=== PATIENT | female | born 1970 | race Caucasian/White ===

== ENCOUNTER 2019-12-01 19:15 | Emergency (ER) | payer OTHER ==
[~2019-12-01] VITALS: Ht 162.6 cm; Wt 64.0 kg
[2019-12-01 21:47] VITALS: BP 108/66
== END 2019-12-01 21:48 | disposition home or self-care (01) ==
LOC: ER 19:15
DX: M25.562 Pain in left knee (principal); G89.29 Other chronic pain; F17.210 Nicotine dependence, cigarettes, uncomplicated; Z88.6 Allergy status to analgesic agent; Z88.7 Allergy status to serum and vaccine; Z88.8 Allergy status to other drugs, medicaments and biological substances

== ENCOUNTER 2020-07-14 23:54 | Emergency (ER) | payer OTHER ==
[~2020-07-14] VITALS: Ht 162.6 cm; Wt 62.1 kg
[2020-07-15 00:30] VITALS: BP 111/69
== END 2020-07-15 00:30 | disposition home or self-care (01) ==
LOC: ER 23:54
DX: M62.838 Other muscle spasm (principal); J02.9 Acute pharyngitis, unspecified; R22.31 Localized swelling, mass and lump, right upper limb; Z88.5 Allergy status to narcotic agent; Z88.7 Allergy status to serum and vaccine; Z88.8 Allergy status to other drugs, medicaments and biological substances

== ENCOUNTER 2020-12-23 18:56 | Emergency (ER) | payer OTHER ==
[~2020-12-23] VITALS: Ht 162.6 cm; Wt 61.7 kg
[2020-12-23] MEDS ORDERED: ROBAXIN 750 MG750 MG PO (21:03)
[2020-12-23] MEDS ORDERED: PERCOCET 5-3251 EACH PO (21:03)
[2020-12-23 21:29] VITALS: BP 125/62
[2020-12-23 21:31] LABS: URINE BILIRUBIN NEGATIVE (Negative); URINE BLOOD TRACE (Negative); URINE CLARITY CLEAR; URINE COLOR YELLOW; URINE GLUCOSE-RANDOM* NEGATIVE (Negative); URINE KETONES NEGATIVE (Negative); URINE LEUKOCYTES-REFLEX TRACE (Negative); URINE NITRITE-REFLEX NEGATIVE (Negative); URINE PROTEIN (DIPSTICK) NEGATIVE (Negative); URINE SPECIFIC GRAVITY 1.015 (1.005-1.035); URINE UROBILINOGEN 0.2 E.U./dl (0.2-1.0)
== END 2020-12-23 21:29 | disposition home or self-care (01) ==
LOC: ER 18:56
PROVIDERS: Emergency Medicine
DX: M54.5 Low back pain (principal); F15.10 Other stimulant abuse, uncomplicated; E03.9 Hypothyroidism, unspecified; Z88.5 Allergy status to narcotic agent; Z88.7 Allergy status to serum and vaccine; Z88.8 Allergy status to other drugs, medicaments and biological substances; Y04.2XXA Assault by strike against or bumped into by another person, initial encounter; Y93.89 Activity, other specified; Y92.89 Other specified places as the place of occurrence of the external cause; Y99.8 Other external cause status

== ENCOUNTER 2020-12-25 17:38 | Emergency (ER) | payer OTHER ==
[~2020-12-25] VITALS: Ht 162.6 cm; Wt 61.7 kg
[~2020-12-25 17:38] MED LIST: PERCOCET 5-3251 EACH PO; ROBAXIN 750 MG750 MG PO
[2020-12-25 18:24] LABS: URINE BILIRUBIN NEGATIVE (Negative); URINE BLOOD 1+ (Negative); URINE CLARITY CLEAR; URINE COLOR YELLOW; URINE GLUCOSE-RANDOM* NEGATIVE (Negative); URINE KETONES NEGATIVE (Negative); URINE LEUKOCYTES-REFLEX TRACE (Negative); URINE NITRITE-REFLEX NEGATIVE (Negative); URINE PROTEIN (DIPSTICK) NEGATIVE (Negative); URINE UROBILINOGEN 0.2 E.U./dl (0.2-1.0)
[2020-12-25 18:43] LABS: CASTS None Seen /LPF (None Seen); MUCUS 0-3 Light strn/LPF (None Seen); SQUAMOUS 4-10 Moderate /LPF (0-3); URINE WBC-REFLEX 0-5 Rare /HPF (0-5)
[2020-12-25 18:44] LABS: BACTERIA-REFLEX 1-9 Few /HPF (None Seen); CRYSTALS None Seen /LPF (None Seen); URINE RBC 0-2 Rare /HPF (0-2)
[2020-12-25 19:49] LABS: ABSOLUTE NEUTROPHILS 5.9 thou/uL (1.4-8.2); BASOPHILS 0.5 % (0.0-2.0); EOSINOPHILS 1.1 % (0.0-3.0); HEMATOCRIT 38.8 % (37.0-47.0); LYMPHOCYTES 24.1 % (24.0-44.0); MCH 31.6 pg (26.0-34.0); MCHC 33.6 g/dL (28.0-37.0); MCV 94.1 fL (80.0-100.0); MONOCYTES 7.6 % (1.0-8.0); PLATELET COUNT 320 thou/uL (150-400); POLYS 66.7 % (36.0-66.0); RBC 4.12 mil/uL (4.20-5.00); RDW 12.7 % (10.5-14.5); WBC 8.9 thou/uL (4.0-11.0)
[2020-12-25 20:38] LABS: CALCIUM 8.6 mg/dL (8.5-10.1); CREATININE 0.9 mg/dL (0.6-1.0); POTASSIUM 3.6 mmol/L (3.5-5.1)
[2020-12-25 20:42] LABS: ALBUMIN 3.7 g/dL (3.4-5.0); TOTAL BILIRUBIN 0.2 mg/dL (0.2-1.0); TOTAL PROTEIN 7.4 g/dL (6.4-8.2)
[2020-12-25] MEDS ORDERED: DOXYCYCLINE 10100 MG PO (21:16)
[2020-12-25 22:30] VITALS: BP 122/87
== END 2020-12-25 22:30 | disposition home or self-care (01) ==
LOC: ER 17:38
PROVIDERS: Physician Assistant
DX: M51.26 Other intervertebral disc displacement, lumbar region (principal); N73.9 Female pelvic inflammatory disease, unspecified; E03.9 Hypothyroidism, unspecified; Z79.899 Other long term (current) drug therapy; Z88.5 Allergy status to narcotic agent; Z88.7 Allergy status to serum and vaccine; Z88.8 Allergy status to other drugs, medicaments and biological substances

== ENCOUNTER 2021-03-12 17:28 | Emergency (ER) | payer OTHER ==
[~2021-03-12] VITALS: Ht 162.6 cm; Wt 64.0 kg
[~2021-03-12 17:28] MED LIST changes: +DOXYCYCLINE 10100 MG PO
[2021-03-12 18:18] LABS: URINE BILIRUBIN NEGATIVE (Negative); URINE BLOOD TRACE (Negative); URINE CLARITY CLEAR; URINE COLOR YELLOW; URINE GLUCOSE-RANDOM* NEGATIVE (Negative); URINE KETONES NEGATIVE (Negative); URINE NITRITE-REFLEX NEGATIVE (Negative); URINE PROTEIN (DIPSTICK) NEGATIVE (Negative); URINE UROBILINOGEN 0.2 E.U./dl (0.2-1.0)
[2021-03-12 18:20] LABS: URINE LEUKOCYTES-REFLEX 1+ (Negative)
[2021-03-12 18:36] LABS: SQUAMOUS >10 Many /LPF (0-3); URINE RBC 1-2 Rare /HPF (NONE SEEN); URINE WBC-REFLEX 0-5 Rare /HPF (0-5)
[2021-03-12 18:37] LABS: BACTERIA-REFLEX 1-9 Few /HPF (None Seen)
[2021-03-12 18:39] LABS: CASTS None Seen /LPF (None Seen); CRYSTALS None Seen /LPF (None Seen)
[2021-03-12] MEDS ORDERED: FLAGYL500 M1 PO (19:29)
[2021-03-12] MEDS ORDERED: DOXYCYCLINE 10100 MG PO (19:29)
[2021-03-12 19:49] VITALS: BP 119/67
== END 2021-03-12 19:48 | disposition home or self-care (01) ==
LOC: ER 17:28
PROVIDERS: Nurse Practitioner
DX: A59.01 Trichomonal vulvovaginitis (principal); N39.0 Urinary tract infection, site not specified; M79.605 Pain in left leg; Z88.7 Allergy status to serum and vaccine; Z88.6 Allergy status to analgesic agent; Z88.5 Allergy status to narcotic agent; Z88.8 Allergy status to other drugs, medicaments and biological substances

== ENCOUNTER 2021-03-23 04:00 | Emergency (ER) | payer OTHER ==
[~2021-03-23] VITALS: Ht 162.6 cm; Wt 59.0 kg
[~2021-03-23 04:00] MED LIST changes: +FLAGYL500 M1 PO
[2021-03-23 04:02] VITALS: BP 116/76
[2021-03-23] MEDS ORDERED: NORFLEX100 MG PO (04:30)
== END 2021-03-23 04:38 | disposition home or self-care (01) ==
LOC: ER 04:00
DX: G89.29 Other chronic pain (principal); M54.9 Dorsalgia, unspecified; E03.9 Hypothyroidism, unspecified; Z88.7 Allergy status to serum and vaccine; Z88.5 Allergy status to narcotic agent

== ENCOUNTER 2021-09-28 06:24 | Emergency (ER) | payer OTHER ==
[~2021-09-28] VITALS: Ht 162.6 cm; Wt 64.9 kg
[~2021-09-28 06:24] MED LIST changes: +NORFLEX100 MG PO
[2021-09-28 07:09] LABS: ABSOLUTE NEUTROPHILS 6.4 thou/uL (1.4-8.2); BASOPHILS 0.6 % (0.0-2.0); EOSINOPHILS 2.6 % (0.0-3.0); HEMATOCRIT 36.4 % (37.0-47.0); LYMPHOCYTES 21.9 % (24.0-44.0); MCH 31.2 pg (26.0-34.0); MCHC 32.9 g/dL (28.0-37.0); MCV 94.6 fL (80.0-100.0); MONOCYTES 9.8 % (1.0-8.0); PLATELET COUNT 350 thou/uL (150-400); POLYS 65.1 % (36.0-66.0); RBC 3.85 mil/uL (4.20-5.00); RDW 12.7 % (10.5-14.5); WBC 9.8 thou/uL (4.0-11.0)
[2021-09-28 07:17] LABS: CALCIUM 8.7 mg/dL (8.5-10.1); CREATININE 0.7 mg/dL (0.6-1.0)
[2021-09-28 07:24] LABS: ALBUMIN 3.3 g/dL (3.4-5.0); TOTAL BILIRUBIN 0.4 mg/dL (0.2-1.0); TOTAL PROTEIN 6.8 g/dL (6.4-8.2)
[2021-09-28 08:27] LABS: URINE BILIRUBIN NEGATIVE (Negative); URINE BLOOD TRACE (Negative); URINE CLARITY CLEAR; URINE COLOR YELLOW; URINE GLUCOSE-RANDOM* NEGATIVE (Negative); URINE KETONES NEGATIVE (Negative); URINE LEUKOCYTES-REFLEX NEGATIVE (Negative); URINE NITRITE-REFLEX NEGATIVE (Negative); URINE PROTEIN (DIPSTICK) NEGATIVE (Negative); URINE UROBILINOGEN 0.2 E.U./dl (0.2-1.0)
[2021-09-28] MEDS ORDERED: FLEXERIL PO (08:53)
[2021-09-28 09:17] VITALS: BP 113/56
--- NOTE | 2021-09-28 12:47 | EKG ---
[address] [address] ELECTROCARDIOGRAM REPORT Name: NIGEL CARRERA [facility] [id number] Admission: 09/28/21 Attend Phys: Discharge: 09/28/21 Date of : 68 Report #: [id number] [facility] ED Test Date: 2021-09-28 Test Time: 06:54:58 Pat Name: NIGEL CARRERA Department: Room: Gender: F [employer]: mpark : 1970 Requested By: Denis Birch Order Number: [id number] MD: Tanner Tapia Measurements Intervals [place] Rate: 72 P: 76 ID: [id number] QRS: 77 QRSD: 85 T: 68 QT: 395 QTc: 433 Interpretive Statements Sinus rhythm No previous ECG available for comparison Electronically Signed On 09-28-2021 12:46:57 [employer] ATTEND[employer] by Tanner Tapia [email or web address] <ELECTRONICALLY SIGNED> By: Tanner Tapia MD 09/28/21 [id number] Tanner Tapia MD /EPI
== END 2021-09-28 09:17 | disposition home or self-care (01) ==
LOC: ER 06:24
PROVIDERS: Emergency Medicine
DX: R07.89 Other chest pain (principal); M54.50 Low back pain, unspecified; M25.562 Pain in left knee; M54.2 Cervicalgia; E03.9 Hypothyroidism, unspecified; Z88.7 Allergy status to serum and vaccine; Z88.6 Allergy status to analgesic agent; Z88.5 Allergy status to narcotic agent